=== PATIENT | male | born 1960 | race Two or more races ===

== ENCOUNTER 2018-04-23 09:15 | Inpatient (IN) | payer OTHER ==
[~2018-04-23] VITALS: Ht 182.9 cm; Wt 88.5 kg
[2018-04-23] MEDS ORDERED: UREX PO (13:38)
[2018-04-23] MEDS ORDERED: FINASTERIDE5 MG PO (13:38)
[2018-04-23] MEDS ORDERED: INDAPAMIDE2.5 MG PO (13:39)
[2018-04-23] MEDS ORDERED: TAMS0.4C PO (13:39)
[2018-04-30] MEDS ORDERED: URETRON D-S TAB1 TAB PO (11:28)
== END 2018-05-02 12:08 | disposition home or self-care (01) | DRG 708 ==
LOC: EDSEX 04-30 06:19 → O/R 04-30 06:19 → SURH 04-30 06:19 → RECOVERY 04-30 07:00 → SURH 04-30 11:00
PROVIDERS: ADMIT Urology
PROC: 0FC40ZZ Extirpation of Matter from Gallbladder, Open Approach (ICD-10-PCS; 2018-04-30)
PROC: 0VT00ZZ Resection of Prostate, Open Approach (ICD-10-PCS; principal; 2018-04-30 07:00)
DX: N40.0 Benign prostatic hyperplasia without lower urinary tract symptoms (principal); N41.0 Acute prostatitis; N21.0 Calculus in bladder; R33.8 Other retention of urine; I10 Essential (primary) hypertension